=== PATIENT | female | born 1945 | race Caucasian/White ===

== ENCOUNTER 2024-01-23 17:37 | Inpatient (IN) | payer MEDICARE ==
[~2024-01-23] VITALS: Ht 162.6 cm; Wt 43.3 kg
[~2024-01-23 17:37] MED LIST: ALBU90AE INH; CEFD300C3 PO; FLUT1DIS4 INH; LOSA1TAB41 PO; METO-395 PO; PRED10TA23 PO
[2024-01-23 18:02] LABS: BASOPHILS # (AUTO) 0.1 X10'3 (0-0.2); BASOPHILS % (AUTO) 0.4 % (0-1); EOSINOPHILS # (AUTO) 0.1 X10'3 (0-0.9); EOSINOPHILS % (AUTO) 0.4 % (0-6); HEMATOCRIT 45.4 % (35.0-45.0); HEMOGLOBIN 14.8 g/dl (12.0-16.0); LYMPHOCYTES # (AUTO) 1.1 X10'3 (1.1-4.8); LYMPHOCYTES % (AUTO) 6.6 % (21-51); MEAN CORPUSCULAR HEMOGLOBIN 31.2 PG (27.0-31.0); MEAN CORPUSCULAR HGB CONC 32.6 g/dL (33.0-36.5); MEAN CORPUSCULAR VOLUME 95.7 FL (78-98); MEAN PLATELET VOLUME 8.6 FL (7.4-10.4); MONOCYTES # (AUTO) 1.8 X10'3 (0-0.9); MONOCYTES % (AUTO) 11.3 % (2-12); NEUTROPHILS % (AUTO) 81.3 % (42-75); PLATELET COUNT 288 X10'3 (140-440); RED BLOOD COUNT 4.74 X10'6 (4.20-5.60); RED CELL DISTRIBUTION WIDTH 14.5 % (11.5-14.5)
[2024-01-23 18:26] LABS: ALBUMIN 2.7 G/DL (3.4-5.0); ANION GAP 5 (8-16); BLOOD UREA NITROGEN 43 MG/DL (7-18); CHLORIDE 101 MMOL/L (99-107); CREATININE 1.05 MG/DL (0.40-0.90); GLUCOSE 117 MG/DL (70-104); SODIUM 141 MMOL/L (135-145); TOTAL CARBON DIOXIDE 34.6 MMOL/L (24-32); eCRCL 32 ML/MIN; eGFR 50 ML/MIN
[2024-01-23 18:28] LABS: POTASSIUM 4.1 MMOL/L (3.5-5.1)
[2024-01-23] MEDS: CefTRIAXone/D5W-Rocephin 1gm 50 ML IV ONE (19:53)
[2024-01-23] MEDS: normal saline 1000ml 1,000 ML IV ONE (19:53)
[2024-01-23] MEDS: methylPREDNISolone sod succ 125mg/2ml vial IV ONE (19:53)
[2024-01-23] MEDS ORDERED: magnesium sulf-water 4G/100mL 100 ML IV PRN (20:25)
[2024-01-23] MEDS ORDERED: magnesium Cl slow-release 64mg tablet PO PRN (20:25)
[2024-01-23] MEDS ORDERED: morphine 2 MG/ML inj. syringe IV PRN (20:25)
[2024-01-23] MEDS ORDERED: normal saline 1000ml 1,000 ML IV SCH (20:25)
[2024-01-23] MEDS ORDERED: ondansetron/PF 4mg/2ml inj IV PRN (20:25)
[2024-01-23] MEDS ORDERED: potassium Cl 40MEQ/1/2NS 520ml 520 ML IV PRN (20:25)
[2024-01-23] MEDS ORDERED: acetaminophen 325mg tablet PO PRN (20:25)
[2024-01-23] MEDS ORDERED: mag hydrox/Alum hydrox/simeth 30ml oral suspension PO PRN (20:25)
[2024-01-23] MEDS ORDERED: HYDROcodone/acetaminophen 5mg/325mg tablet PO PRN (20:25)
[2024-01-23] MEDS ORDERED: potassium Cl 20 mEq SR tablet PO PRN (20:25)
[2024-01-23] MEDS ORDERED: magnesium sulf-water 2g/50mL 50 ML IV PRN (20:25)
[2024-01-23] MEDS ORDERED: CEFD300C17 PO (20:34)
[2024-01-23] MEDS ORDERED: PRED10TA (20:34)
[2024-01-23] MEDS ORDERED: CEPH-585 PO (20:35)
[2024-01-23] MEDS ORDERED: FLUT1BLS10 PO (20:35)
[2024-01-23 20:58] LABS: HEMOGLOBIN A1C 5.7 % (4.5-6.2)
[2024-01-23 21:06] LABS: PRO BRAIN NATRIURETIC PEPTIDE 1611 PG/ML (0-450)
[2024-01-23] MEDS ORDERED: ipratropium/albuterol 3ml nebule NEB PRN (21:25)
[2024-01-23 21:37] LABS: ABG BASE EXCESS 4.3 mmol/L (-2.0-3.0); ABG HCO3 31.2 mmol/L (21.0-28.0); ABG OXYGEN SATURATION 88.4 % (94.0-98.0); ABG PCO2 (T) 54.4 mmHg (32.0-45.0); ABG PH (T) 7.374 (7.350-7.450); ABG PO2 (T) 53.9 mmHg (83.0-108.0); ALLEN'S TEST Modified; FCOHb 0.5 % (0.5-1.5); FHHb 11.5 % (0.0-5.0); FLOW 3 L/min; FMetHb 0.3 % (0.0-1.5); FO2Hb 87.7 % (94.0-98.0); PATIENT TEMPERATURE 36.5; TOTAL HEMOGLOBIN 14.7 G/dl (12.0-16.0)
[2024-01-23] MEDS: furosemide 10 MG/1 ML 10ml inj IV SCH (22:26)
[2024-01-23] MEDS: azithromycin/NS 500mg/250ml 250 ML IV SCH (22:27)
[2024-01-23 23:49] LABS: BILIRUBIN,URINE NEGATIVE (Neg); CLARITY,URINE CLEAR (Clear); COLOR,URINE YELLOW (Yellow); GLUCOSE, URINE NEGATIVE (Neg); KETONES,URINE NEGATIVE (Neg); LEUKOCYTE ESTERASE ,URINE SMALL (Neg); NITRITES, URINE NEGATIVE (Neg); OCCULT BLOOD,URINE SMALL (Neg); PROTEIN,URINE NEGATIVE (Neg); UROBILINOGEN,URINE 0.2 E.U/dL (0.2-1.0)
[2024-01-24] VITALS (10 sets, daily range): BP systolic 114–132; BP diastolic 41–45; PULSE 83–100; RESP 16–26; TEMP 97.8–98.9; O2SAT 85–92
[2024-01-24 00:14] LABS: UA COLLECTION TYPE CLN CATCH MIDSTREAM
[2024-01-24 00:15] LABS: BACTERIA,URINE FEW /HPF (Neg); SQUAMOUS EPITHELIAL CELL,UR FEW /LPF (FEW); TRANSITIONAL EPI CELLS,URINE FEW /HPF
[2024-01-24 00:16] LABS: HYALINE CASTS 0-3 /LPF (NEGATIVE); RBC,URINE 0-2 /HPF (0-2)
[2024-01-24] MEDS: normal saline 1000ml 1,000 ML IV ONE (00:45)
[2024-01-24] MEDS: docusate sod 100mg capsule PO SCH (07:25)
[2024-01-24] MEDS: K and/or MAG REPLACEMENT MC SCH (07:25)
[2024-01-24] MEDS: heparin, porcine 5000 units/ml vial SQ SCH (07:26)
[2024-01-24] MEDS: HYDROchlorothiazide 12.5mg capsule PO SCH (07:38)
[2024-01-24] MEDS: losartan 50mg tablet PO SCH (07:38)
[2024-01-24] MEDS: metoprolol succinate 25mg (24-HOUR) SR. Tablet PO SCH (07:38)
[2024-01-24] MEDS: methylPREDNISolone sod succ/PF 40mg inj. IV SCH (07:39)
[2024-01-24] MEDS: CefTRIAXone 2gm/D5W 50ml BAG 50 ML IV SCH (07:39)
[2024-01-24] MEDS ORDERED: methylPREDNISolone sod succ 125mg/2ml vial IV SCH (08:00)
[2024-01-24 09:08] LABS: BASOPHILS % (AUTO) 0.1 % (0-1); EOSINOPHILS % (AUTO) 0 % (0-6); HEMATOCRIT 41.3 % (35.0-45.0); HEMOGLOBIN 13.4 g/dl (12.0-16.0); LYMPHOCYTES # (AUTO) 0.3 X10'3 (1.1-4.8); LYMPHOCYTES % (AUTO) 4.1 % (21-51); MEAN CORPUSCULAR HEMOGLOBIN 31.1 PG (27.0-31.0); MEAN CORPUSCULAR HGB CONC 32.4 g/dL (33.0-36.5); MEAN CORPUSCULAR VOLUME 95.9 FL (78-98); MEAN PLATELET VOLUME 8.8 FL (7.4-10.4); MONOCYTES # (AUTO) 0.2 X10'3 (0-0.9); NEUTROPHILS # (AUTO) 7.1 X10'3 (1.8-7.7); NEUTROPHILS % (AUTO) 93.8 % (42-75); PLATELET COUNT 279 X10'3 (140-440); RED CELL DISTRIBUTION WIDTH 14.9 % (11.5-14.5); WHITE BLOOD COUNT 7.5 X10'3 (4.5-11.0)
[2024-01-24 09:37] LABS: ALBUMIN 2.3 G/DL (3.4-5.0); ANION GAP 5 (8-16); BLOOD UREA NITROGEN 41 MG/DL (7-18); BUN/CREATININE RATIO 38.7 (10.0-20.0); CALCIUM 8.3 MG/DL (8.5-10.1); CHLORIDE 105 MMOL/L (99-107); CHOL/HDL RATIO 2.4 (0.00-4.99); CHOLESTEROL 136 MG/DL (0-200); CREATININE 1.06 MG/DL (0.40-0.90); GLUCOSE 212 MG/DL (70-104); HDL CHOLESTEROL 57 MG/DL (35-60); LDL CHOLESTEROL 60 MG/DL (50-100); MAGNESIUM 1.8 MG/DL (1.5-2.4); POTASSIUM 3.1 MMOL/L (3.5-5.1); SODIUM 144 MMOL/L (135-145); TOTAL CARBON DIOXIDE 33.9 MMOL/L (24-32); TRIGLYCERIDES 70 MG/DL (20-135); eCRCL 31 ML/MIN; eGFR 50 ML/MIN
[2024-01-24] MEDS ORDERED: furosemide 20 MG/2 ML vial IV SCH (09:51)
[2024-01-24] MEDS: potassium Cl 20 mEq SR tablet PO PRN (11:45)
[2024-01-24] MEDS: ipratropium/albuterol 3ml nebule NEB SCH (11:55)
[2024-01-24] MEDS: methylPREDNISolone sod succ 125mg/2ml vial IV SCH (14:38)
[2024-01-24] MEDS ORDERED: iohexol 350MG/ML 100ml bottle IV ONE (17:37)
[2024-01-24 23:10] LABS: D-DIMER 2.39 MG/L FEU (0-0.50)
[2024-01-25] VITALS (13 sets, daily range): BP systolic 121–131; BP diastolic 41–50; PULSE 81–107; RESP 16–20; TEMP 97.5–98.1; O2SAT 86–92
[2024-01-25 07:08] LABS: BASOPHILS % (AUTO) 0.1 % (0-1); EOSINOPHILS % (AUTO) 0 % (0-6); HEMATOCRIT 43.2 % (35.0-45.0); HEMOGLOBIN 13.6 g/dl (12.0-16.0); LYMPHOCYTES # (AUTO) 0.5 X10'3 (1.1-4.8); LYMPHOCYTES % (AUTO) 2.2 % (21-51); MEAN CORPUSCULAR HEMOGLOBIN 30.3 PG (27.0-31.0); MEAN CORPUSCULAR HGB CONC 31.5 g/dL (33.0-36.5); MEAN PLATELET VOLUME 9.4 FL (7.4-10.4); MONOCYTES # (AUTO) 0.5 X10'3 (0-0.9); MONOCYTES % (AUTO) 2.2 % (2-12); NEUTROPHILS # (AUTO) 21.7 X10'3 (1.8-7.7); NEUTROPHILS % (AUTO) 95.5 % (42-75); PLATELET COUNT 249 X10'3 (140-440); RED BLOOD COUNT 4.51 X10'6 (4.20-5.60); RED CELL DISTRIBUTION WIDTH 15.1 % (11.5-14.5); WHITE BLOOD COUNT 22.7 X10'3 (4.5-11.0)
[2024-01-25 07:19] LABS: ALANINE AMINOTRANSFERASE 18 U/L (12-78); ALBUMIN 2.6 G/DL (3.4-5.0); ALBUMIN/GLOBULIN RATIO 0.8 (1.1-1.5); ALKALINE PHOSPHATASE 44 IU/L (46-116); ANION GAP 3 (8-16); ASPARTATE AMINO TRANSFERASE 26 U/L (10-37); BILIRUBIN,TOTAL 0.4 MG/DL (0.1-1.0); BLOOD UREA NITROGEN 50 MG/DL (7-18); BUN/CREATININE RATIO 43.9 (10.0-20.0); CALCIUM 8.6 MG/DL (8.5-10.1); CHLORIDE 105 MMOL/L (99-107); CREATININE 1.14 MG/DL (0.40-0.90); GLUCOSE 153 MG/DL (70-104); MAGNESIUM 2.1 MG/DL (1.5-2.4); POTASSIUM 3.7 MMOL/L (3.5-5.1); SODIUM 144 MMOL/L (135-145); TOTAL CARBON DIOXIDE 36.3 MMOL/L (24-32); TOTAL PROTEIN 5.7 G/DL (6.4-8.2); eCRCL 27 ML/MIN; eGFR 46 ML/MIN
[2024-01-25] MEDS: lactose-reduced food (Ensure Enlive) - 237ml bottle PO SCH (17:00)
[2024-01-25] MEDS: magnesium hydroxide 30ml (MOM) UD suspension PO PRN (20:58)
[2024-01-25] MEDS: normal saline 1000ml 1,000 ML IV SCH (21:00)
[2024-01-26] VITALS (15 sets, daily range): BP systolic 129–161; BP diastolic 45–60; PULSE 55–98; RESP 14–20; TEMP 97.5–98.1; O2SAT 85–93
[2024-01-26 07:27] LABS: BASOPHILS % (AUTO) 0 % (0-1); EOSINOPHILS % (AUTO) 0 % (0-6); HEMATOCRIT 42.1 % (35.0-45.0); HEMOGLOBIN 13.6 g/dl (12.0-16.0); LYMPHOCYTES # (AUTO) 0.3 X10'3 (1.1-4.8); LYMPHOCYTES % (AUTO) 1.5 % (21-51); MEAN CORPUSCULAR HEMOGLOBIN 31.3 PG (27.0-31.0); MEAN CORPUSCULAR HGB CONC 32.2 g/dL (33.0-36.5); MEAN CORPUSCULAR VOLUME 96.9 FL (78-98); MEAN PLATELET VOLUME 9.6 FL (7.4-10.4); MONOCYTES # (AUTO) 0.6 X10'3 (0-0.9); MONOCYTES % (AUTO) 2.6 % (2-12); NEUTROPHILS # (AUTO) 20.8 X10'3 (1.8-7.7); NEUTROPHILS % (AUTO) 95.9 % (42-75); PLATELET COUNT 249 X10'3 (140-440); RED BLOOD COUNT 4.34 X10'6 (4.20-5.60); RED CELL DISTRIBUTION WIDTH 14.6 % (11.5-14.5); WHITE BLOOD COUNT 21.7 X10'3 (4.5-11.0)
[2024-01-26 07:55] LABS: ALANINE AMINOTRANSFERASE 24 U/L (12-78); ALBUMIN 2.5 G/DL (3.4-5.0); ALBUMIN/GLOBULIN RATIO 0.7 (1.1-1.5); ALKALINE PHOSPHATASE 44 IU/L (46-116); ANION GAP 1 (8-16); ASPARTATE AMINO TRANSFERASE 29 U/L (10-37); BILIRUBIN,TOTAL 0.2 MG/DL (0.1-1.0); BLOOD UREA NITROGEN 49 MG/DL (7-18); CALCIUM 8.4 MG/DL (8.5-10.1); CHLORIDE 106 MMOL/L (99-107); CREATININE 0.83 MG/DL (0.40-0.90); GLUCOSE 139 MG/DL (70-104); MAGNESIUM 2.9 MG/DL (1.5-2.4); POTASSIUM 3.4 MMOL/L (3.5-5.1); SODIUM 144 MMOL/L (135-145); TOTAL CARBON DIOXIDE 36.7 MMOL/L (24-32); eCRCL 37 ML/MIN; eGFR 66 ML/MIN
[2024-01-26] MEDS ORDERED: ALBU18HF2 INH (15:35)
[2024-01-27] VITALS (16 sets, daily range): BP systolic 120–155; BP diastolic 58–77; PULSE 68–98; RESP 16–21; TEMP 97.5–98; O2SAT 87–94
[2024-01-27 08:19] LABS: ALANINE AMINOTRANSFERASE 25 U/L (12-78); ALBUMIN 2.7 G/DL (3.4-5.0); ALKALINE PHOSPHATASE 47 IU/L (46-116); ANION GAP 2 (8-16); ASPARTATE AMINO TRANSFERASE 28 U/L (10-37); BILIRUBIN,TOTAL 0.3 MG/DL (0.1-1.0); BLOOD UREA NITROGEN 46 MG/DL (7-18); BUN/CREATININE RATIO 61.3 (10.0-20.0); CALCIUM 8.3 MG/DL (8.5-10.1); CHLORIDE 106 MMOL/L (99-107); CREATININE 0.75 MG/DL (0.40-0.90); GLUCOSE 127 MG/DL (70-104); MAGNESIUM 2.6 MG/DL (1.5-2.4); SODIUM 143 MMOL/L (135-145); TOTAL CARBON DIOXIDE 35.3 MMOL/L (24-32); TOTAL PROTEIN 5.4 G/DL (6.4-8.2); eCRCL 41 ML/MIN; eGFR 74 ML/MIN
[2024-01-27 08:20] LABS: POTASSIUM 4.2 MMOL/L (3.5-5.1)
[2024-01-27 08:31] LABS: BASOPHILS % (AUTO) 0.2 % (0-1); EOSINOPHILS % (AUTO) 0 % (0-6); HEMATOCRIT 42.3 % (35.0-45.0); HEMOGLOBIN 13.7 g/dl (12.0-16.0); LYMPHOCYTES # (AUTO) 0.4 X10'3 (1.1-4.8); LYMPHOCYTES % (AUTO) 2.3 % (21-51); MEAN CORPUSCULAR HEMOGLOBIN 31.4 PG (27.0-31.0); MEAN CORPUSCULAR HGB CONC 32.5 g/dL (33.0-36.5); MEAN CORPUSCULAR VOLUME 96.6 FL (78-98); MEAN PLATELET VOLUME 10.5 FL (7.4-10.4); MONOCYTES # (AUTO) 0.7 X10'3 (0-0.9); MONOCYTES % (AUTO) 4.4 % (2-12); NEUTROPHILS # (AUTO) 15.7 X10'3 (1.8-7.7); NEUTROPHILS % (AUTO) 93.1 % (42-75); PLATELET COUNT 233 X10'3 (140-440); RED BLOOD COUNT 4.38 X10'6 (4.20-5.60); RED CELL DISTRIBUTION WIDTH 14.9 % (11.5-14.5); WHITE BLOOD COUNT 16.8 X10'3 (4.5-11.0)
[2024-01-28] VITALS (14 sets, daily range): BP systolic 138–159; BP diastolic 57–61; PULSE 76–99; RESP 15–19; TEMP 97.7–98; O2SAT 87–93
[2024-01-28 06:11] LABS: BASOPHILS % (AUTO) 0.2 % (0-1); EOSINOPHILS % (AUTO) 0 % (0-6); HEMATOCRIT 39.7 % (35.0-45.0); HEMOGLOBIN 12.8 g/dl (12.0-16.0); LYMPHOCYTES # (AUTO) 0.2 X10'3 (1.1-4.8); LYMPHOCYTES % (AUTO) 1.9 % (21-51); MEAN CORPUSCULAR HEMOGLOBIN 30.9 PG (27.0-31.0); MEAN CORPUSCULAR HGB CONC 32.1 g/dL (33.0-36.5); MEAN CORPUSCULAR VOLUME 96.2 FL (78-98); MEAN PLATELET VOLUME 9.7 FL (7.4-10.4); MONOCYTES # (AUTO) 0.3 X10'3 (0-0.9); MONOCYTES % (AUTO) 2.3 % (2-12); NEUTROPHILS % (AUTO) 95.6 % (42-75); PLATELET COUNT 198 X10'3 (140-440); RED BLOOD COUNT 4.13 X10'6 (4.20-5.60); RED CELL DISTRIBUTION WIDTH 14.7 % (11.5-14.5); WHITE BLOOD COUNT 12.6 X10'3 (4.5-11.0)
[2024-01-28 06:34] LABS: ALANINE AMINOTRANSFERASE 28 U/L (12-78); ALBUMIN 2.5 G/DL (3.4-5.0); ALKALINE PHOSPHATASE 45 IU/L (46-116); ANION GAP 1 (8-16); ASPARTATE AMINO TRANSFERASE 27 U/L (10-37); BILIRUBIN,TOTAL 0.3 MG/DL (0.1-1.0); BLOOD UREA NITROGEN 43 MG/DL (7-18); BUN/CREATININE RATIO 63.2 (10.0-20.0); CALCIUM 7.8 MG/DL (8.5-10.1); CHLORIDE 107 MMOL/L (99-107); CREATININE 0.68 MG/DL (0.40-0.90); GLUCOSE 131 MG/DL (70-104); POTASSIUM 4.1 MMOL/L (3.5-5.1); SODIUM 143 MMOL/L (135-145); TOTAL CARBON DIOXIDE 34.7 MMOL/L (24-32); TOTAL PROTEIN 4.9 G/DL (6.4-8.2); eCRCL 45 ML/MIN; eGFR 83 ML/MIN
[2024-01-28] MEDS: azithromycin/NS 500mg/250ml 250 ML IV SCH (16:22)
[2024-01-28] MEDS: methylPREDNISolone sod succ 125mg/2ml vial IV SCH (20:20)
[2024-01-29] VITALS (20 sets, daily range): BP systolic 139–151; BP diastolic 43–63; PULSE 65–99; RESP 13–22; TEMP 96.9–98; O2SAT 82–95
[2024-01-29 06:10] LABS: ALANINE AMINOTRANSFERASE 34 U/L (12-78); ALBUMIN 2.6 G/DL (3.4-5.0); ALKALINE PHOSPHATASE 51 IU/L (46-116); ANION GAP 0 (8-16); ASPARTATE AMINO TRANSFERASE 23 U/L (10-37); BILIRUBIN,TOTAL 0.4 MG/DL (0.1-1.0); BLOOD UREA NITROGEN 38 MG/DL (7-18); BUN/CREATININE RATIO 54.3 (10.0-20.0); CALCIUM 8.1 MG/DL (8.5-10.1); CHLORIDE 107 MMOL/L (99-107); GLUCOSE 133 MG/DL (70-104); POTASSIUM 3.9 MMOL/L (3.5-5.1); SODIUM 143 MMOL/L (135-145); TOTAL CARBON DIOXIDE 35.6 MMOL/L (24-32); TOTAL PROTEIN 5.3 G/DL (6.4-8.2); eCRCL 44 ML/MIN; eGFR 81 ML/MIN
[2024-01-29 14:09] LABS: OSMOLALITY 312 MOSM/K (280-300)
[2024-01-29 14:29] LABS: C-REACTIVE PROTEIN 0.24 MG/DL (0.0-0.5); CREATINE KINASE 49 U/L (26-192); LIPASE 43 U/L (16-77); PHOSPHORUS 2.6 MG/DL (2.3-4.5); PRO BRAIN NATRIURETIC PEPTIDE 2755 PG/ML (0-450)
[2024-01-29] MEDS: furosemide 20 MG/2 ML vial IV SCH (20:30)
[2024-01-29] MEDS: CefTRIAXone 1000mg IM Kit (w/lidocaine diluent) IM ONE (23:54)
[2024-01-30] VITALS (23 sets, daily range): BP systolic 115–142; BP diastolic 40–66; PULSE 72–102; RESP 13–24; TEMP 97.2–98.1; O2SAT 89–97
[2024-01-30] MEDS: aspirin 81mg, enteric-coated 1 TAB TABLET.DR PO SCH (09:00)
[2024-01-30 15:04] LABS: ABG BASE EXCESS 10.4 mmol/L (-2.0-3.0); ABG HCO3 36.8 mmol/L (21.0-28.0); ABG OXYGEN SATURATION 91.8 % (94.0-98.0); ABG PCO2 (T) 55.9 mmHg (32.0-45.0); ABG PH (T) 7.436 (7.350-7.450); ABG PO2 (T) 60.9 mmHg (83.0-108.0); ALLEN'S TEST POSITIVE; FCOHb 0.6 % (0.5-1.5); FHHb 8.1 % (0.0-5.0); FMetHb 0.3 % (0.0-1.5); MODE HIGH FLOW; TOTAL HEMOGLOBIN 14.4 G/dl (12.0-16.0)
[2024-01-30 15:30] LABS: BASOPHILS % (AUTO) 0.2 % (0-1); EOSINOPHILS % (AUTO) 0.1 % (0-6); HEMATOCRIT 43.6 % (35.0-45.0); LYMPHOCYTES # (AUTO) 0.3 X10'3 (1.1-4.8); LYMPHOCYTES % (AUTO) 1.8 % (21-51); MEAN CORPUSCULAR HGB CONC 32.2 g/dL (33.0-36.5); MEAN CORPUSCULAR VOLUME 96.3 FL (78-98); MEAN PLATELET VOLUME 9.6 FL (7.4-10.4); MONOCYTES # (AUTO) 0.6 X10'3 (0-0.9); MONOCYTES % (AUTO) 3.9 % (2-12); NEUTROPHILS # (AUTO) 14.3 X10'3 (1.8-7.7); PLATELET COUNT 223 X10'3 (140-440); RED BLOOD COUNT 4.53 X10'6 (4.20-5.60); RED CELL DISTRIBUTION WIDTH 14.7 % (11.5-14.5); WHITE BLOOD COUNT 15.2 X10'3 (4.5-11.0)
[2024-01-30 15:55] LABS: ALANINE AMINOTRANSFERASE 38 U/L (12-78); ALBUMIN 2.6 G/DL (3.4-5.0); ALKALINE PHOSPHATASE 56 IU/L (46-116); ANION GAP 3 (8-16); ASPARTATE AMINO TRANSFERASE 27 U/L (10-37); BILIRUBIN,TOTAL 0.3 MG/DL (0.1-1.0); BLOOD UREA NITROGEN 38 MG/DL (7-18); BUN/CREATININE RATIO 42.7 (10.0-20.0); CALCIUM 8.1 MG/DL (8.5-10.1); CHLORIDE 101 MMOL/L (99-107); CREATININE 0.89 MG/DL (0.40-0.90); GLUCOSE 223 MG/DL (70-104); POTASSIUM 3.4 MMOL/L (3.5-5.1); PRO BRAIN NATRIURETIC PEPTIDE 2659 PG/ML (0-450); SODIUM 142 MMOL/L (135-145); TOTAL PROTEIN 5.2 G/DL (6.4-8.2); eCRCL 34 ML/MIN; eGFR 61 ML/MIN
[2024-01-30] MEDS ORDERED: potassium Cl 20 mEq SR tablet PO PRN (16:25)
[2024-01-30] MEDS ORDERED: magnesium Cl slow-release 64mg tablet PO PRN (16:25)
[2024-01-30] MEDS: potassium Cl 20 mEq SR tablet PO PRN (21:54)
[2024-01-31] VITALS (16 sets, daily range): BP systolic 104–117; BP diastolic 36–53; PULSE 50–111; RESP 14–20; TEMP 97.4–97.8; O2SAT 85–98
[2024-02-01] VITALS (8 sets, daily range): BP systolic 99–108; BP diastolic 35–48; PULSE 59–103; RESP 16–18; TEMP 97.6–97.8; O2SAT 89–98
[2024-02-01 09:49] LABS: BASOPHILS % (AUTO) 0.1 % (0-1); EOSINOPHILS % (AUTO) 0.3 % (0-6); HEMATOCRIT 43.7 % (35.0-45.0); HEMOGLOBIN 13.9 g/dl (12.0-16.0); LYMPHOCYTES # (AUTO) 0.7 X10'3 (1.1-4.8); LYMPHOCYTES % (AUTO) 4.4 % (21-51); MEAN CORPUSCULAR HEMOGLOBIN 30.5 PG (27.0-31.0); MEAN CORPUSCULAR HGB CONC 31.7 g/dL (33.0-36.5); MEAN PLATELET VOLUME 10.9 FL (7.4-10.4); MONOCYTES # (AUTO) 1.2 X10'3 (0-0.9); MONOCYTES % (AUTO) 8.1 % (2-12); NEUTROPHILS # (AUTO) 12.9 X10'3 (1.8-7.7); NEUTROPHILS % (AUTO) 87.1 % (42-75); PLATELET COUNT 198 X10'3 (140-440); RED BLOOD COUNT 4.56 X10'6 (4.20-5.60); WHITE BLOOD COUNT 14.8 X10'3 (4.5-11.0)
[2024-02-01 10:09] LABS: ALANINE AMINOTRANSFERASE 39 U/L (12-78); ALBUMIN 2.5 G/DL (3.4-5.0); ALKALINE PHOSPHATASE 48 IU/L (46-116); ANION GAP 2 (8-16); ASPARTATE AMINO TRANSFERASE 30 U/L (10-37); BILIRUBIN,TOTAL 0.6 MG/DL (0.1-1.0); BLOOD UREA NITROGEN 40 MG/DL (7-18); BUN/CREATININE RATIO 57.1 (10.0-20.0); CALCIUM 8.5 MG/DL (8.5-10.1); CHLORIDE 104 MMOL/L (99-107); GLUCOSE 111 MG/DL (70-104); SODIUM 146 MMOL/L (135-145); eCRCL 44 ML/MIN; eGFR 81 ML/MIN
[2024-02-01 10:17] LABS: POTASSIUM 4.1 MMOL/L (3.5-5.1)
[2024-02-01 10:26] LABS: TOTAL CARBON DIOXIDE 40.5 MMOL/L (24-32)
== END 2024-02-01 14:45 | DRG 871 ==
LOC: EEVIPCON 17:37 → ER 17:37 → ED HOLD 19:41 → UNDOADMIN 19:41 → ED HOLD 20:31 → ORTHO 4S 01-24 09:40 → PCU 3S 01-29 11:53
PROVIDERS: ADMIT Internal Medicine Pulmonary Disease; ATTEND Nurse Practitioner Family
PROC: B32T1ZZ Computerized Tomography (CT Scan) of Left Pulmonary Artery using Low Osmolar Contrast (ICD-10-PCS; principal; 2024-01-24)
PROC: B32S1ZZ Computerized Tomography (CT Scan) of Right Pulmonary Artery using Low Osmolar Contrast (ICD-10-PCS; 2024-01-24)
PROC: 5A0935A Assistance with Respiratory Ventilation, Less than 24 Consecutive Hours, High Flow/Velocity Cannula (ICD-10-PCS; 2024-01-29)
PROC: 5A0935A Assistance with Respiratory Ventilation, Less than 24 Consecutive Hours, High Flow/Velocity Cannula (ICD-10-PCS; 2024-01-30)
PROC: 5A0935A Assistance with Respiratory Ventilation, Less than 24 Consecutive Hours, High Flow/Velocity Cannula (ICD-10-PCS; 2024-01-31)
PROC: 5A0935A Assistance with Respiratory Ventilation, Less than 24 Consecutive Hours, High Flow/Velocity Cannula (ICD-10-PCS; 2024-02-01)
DX: A41.9 Sepsis, unspecified organism (principal); I21.A1 Myocardial infarction type 2; J96.21 Acute and chronic respiratory failure with hypoxia; J18.9 Pneumonia, unspecified organism; J44.1 Chronic obstructive pulmonary disease with (acute) exacerbation; N17.9 Acute kidney failure, unspecified; E87.29 Other acidosis; J44.0 Chronic obstructive pulmonary disease with (acute) lower respiratory infection; J90 Pleural effusion, not elsewhere classified; Z20.822 Contact with and (suspected) exposure to COVID-19; I10 Essential (primary) hypertension; I27.20 Pulmonary hypertension, unspecified; Z85.820 Personal history of malignant melanoma of skin
CPT/HCPCS: 36415; 36600; 71045; 71250; 71275; 80048; 80053; 80061; 81001; 81003; 82550; 82570; 82803; 83036; 83605; 83690; 83735; 83880; 83930; 83935; 84100; 84145; 84300; 84484; 85018; 85025; 85379; 85651; 86140; 87040; 87081; 87088; 87502; 87503; 87811; 93005; 94640; 94664; 94668; 94760; 96365; 96375; 97110; 97116; 97162; 97530; 99285; A4615; A6213; A6258; A6449; G0378; J0456; J0696; J1644; J1940; J2919; J7030; J7040; Q9967

== ENCOUNTER 2024-02-09 08:38 | Emergency (ER) | payer MEDICARE ==
[~2024-02-09] VITALS: Ht 162.6 cm; Wt 45.5 kg
[2024-02-09] VITALS (12 sets, daily range): BP systolic 74–100; BP diastolic 22–56; PULSE 111–140; RESP 18–20; TEMP 98; O2SAT 85–96
[~2024-02-09 08:38] MED LIST changes: +ALBU18HF2 INH; -ALBU90AE INH; +FLUT1BLS10 PO; -FLUT1DIS4 INH
[2024-02-09] MEDS: niCARDipine-NS 40mg/200ml IVPB 200 ML IV SCH (08:40)
[2024-02-09] MEDS: midazolam 100mg in NS 100ml 100 ML IV PRN (08:55)
[2024-02-09 09:07] LABS: ABG BASE EXCESS 0.5 mmol/L (-2.0-3.0); ABG HCO3 27.9 mmol/L (21.0-28.0); ABG OXYGEN SATURATION 89.5 % (94.0-98.0); ABG PCO2 (T) 54.5 mmHg (32.0-45.0); ABG PH (T) 7.323 (7.350-7.450); ABG PO2 (T) 60.7 mmHg (83.0-108.0); ALLEN'S TEST POSITIVE; FCOHb 0.3 % (0.5-1.5); FHHb 10.5 % (0.0-5.0); FMetHb 0.1 % (0.0-1.5); FO2Hb 89.1 % (94.0-98.0); MODE VENT - PRVC; PATIENT TEMPERATURE 36.1; PEEP 5 cm H2O; RESPIRATORY RATE 18 b/min; TIDAL VOLUME 375 mL; TOTAL HEMOGLOBIN 13.6 G/dl (12.0-16.0)
[2024-02-09] MEDS ORDERED: ondansetron/PF 4mg/2ml inj IV PRN (09:25)
[2024-02-09] MEDS ORDERED: morphine 4 MG/ML inj SYRINge IV PRN (09:25)
[2024-02-09] MEDS ORDERED: morphine 2 MG/ML inj. syringe IV PRN (09:25)
[2024-02-09] MEDS ORDERED: magnesium hydroxide 30ml (MOM) UD suspension PO PRN (09:25)
[2024-02-09] MEDS ORDERED: acetaminophen 325mg tablet PO PRN ×2 (09:25)
[2024-02-09] MEDS ORDERED: normal saline 1000ml 1,000 ML IV SCH (09:25)
[2024-02-09 09:54] LABS: BILIRUBIN,URINE NEGATIVE (Neg); CLARITY,URINE CLEAR (Clear); COLOR,URINE YELLOW (Yellow); GLUCOSE, URINE NEGATIVE (Neg); KETONES,URINE TRACE mg/dl (Neg); LEUKOCYTE ESTERASE ,URINE NEGATIVE (Neg); NITRITES, URINE NEGATIVE (Neg); OCCULT BLOOD,URINE NEGATIVE (Neg); PROTEIN,URINE 30 mg/dl (Neg); UROBILINOGEN,URINE 0.2 E.U/dL (0.2-1.0)
[2024-02-09 09:58] LABS: BASOPHILS % (AUTO) 0.2 % (0-1); EOSINOPHILS % (AUTO) 0 % (0-6); LYMPHOCYTES # (AUTO) 0.3 X10'3 (1.1-4.8)
[2024-02-09 09:59] LABS: BASOPHILS # (AUTO) 0.1 X10'3 (0-0.2); HEMATOCRIT 37.8 % (35.0-45.0); HEMOGLOBIN 11.9 g/dl (12.0-16.0); LYMPHOCYTES % (AUTO) 1.1 % (21-51); MEAN CORPUSCULAR HEMOGLOBIN 30.6 PG (27.0-31.0); MEAN CORPUSCULAR HGB CONC 31.4 g/dL (33.0-36.5); MEAN CORPUSCULAR VOLUME 97.3 FL (78-98); MEAN PLATELET VOLUME 9.6 FL (7.4-10.4); MONOCYTES # (AUTO) 0.7 X10'3 (0-0.9); MONOCYTES % (AUTO) 2.6 % (2-12); NEUTROPHILS # (AUTO) 26.9 X10'3 (1.8-7.7); NEUTROPHILS % (AUTO) 96.1 % (42-75); RED BLOOD COUNT 3.89 X10'6 (4.20-5.60); RED CELL DISTRIBUTION WIDTH 15.3 % (11.5-14.5)
[2024-02-09] MEDS: NORepinephrine 8mg/ 250ml NS 250 ML IV SCH (10:00)
[2024-02-09 10:01] LABS: UA COLLECTION TYPE OTHER
[2024-02-09 10:02] LABS: BACTERIA,URINE NONE SEEN /HPF (Neg); MUCUS STRANDS NONE SEEN /LPF (Neg); RBC,URINE 0-2 /HPF (0-2); SQUAMOUS EPITHELIAL CELL,UR NONE SEEN /LPF (FEW); WBC,URINE 0-4 /HPF (0-4)
[2024-02-09 10:06] LABS: PLATELET COUNT 39 X10'3 (140-440)
[2024-02-09 10:07] LABS: ALANINE AMINOTRANSFERASE 28 U/L (12-78); ALBUMIN 1.6 G/DL (3.4-5.0); ALBUMIN/GLOBULIN RATIO 0.5 (1.1-1.5); ALKALINE PHOSPHATASE 84 IU/L (46-116); ANION GAP 6 (8-16); ASPARTATE AMINO TRANSFERASE 20 U/L (10-37); BILIRUBIN,TOTAL 0.8 MG/DL (0.1-1.0); BLOOD UREA NITROGEN 78 MG/DL (7-18); BUN/CREATININE RATIO 91.8 (10.0-20.0); CALCIUM 8.4 MG/DL (8.5-10.1); CHLORIDE 115 MMOL/L (99-107); CREATININE 0.85 MG/DL (0.40-0.90); GLUCOSE 171 MG/DL (70-104); POTASSIUM 4.3 MMOL/L (3.5-5.1); SODIUM 151 MMOL/L (135-145); TOTAL CARBON DIOXIDE 30.2 MMOL/L (24-32); TOTAL PROTEIN 4.8 G/DL (6.4-8.2); eCRCL 38 ML/MIN; eGFR 64 ML/MIN
[2024-02-09 10:15] LABS: PRO BRAIN NATRIURETIC PEPTIDE 3279 PG/ML (0-450)
[2024-02-09] MEDS: FENTANYL-0.9 % NACL/PF 100 ML IV SCH (10:15)
[2024-02-09] MEDS: CefTRIAXone/D5W-Rocephin 1gm 50 ML IV ONE (10:16)
[2024-02-09] MEDS: NORepinephrine 8mg/ 250ml NS 250 ML IV ONE (10:17)
[2024-02-09] MEDS: normal saline 1000ml 1,000 ML IV ONE ×2 (10:24→10:25)
[2024-02-09 10:32] LABS: ANISOCYTOSIS 1+; PLATELET ESTIMATE DECREASED; TOTAL CELLS COUNTED 100
[2024-02-09] MEDS: ipratropium/albuterol 3ml nebule NEB SCH (11:28)
[2024-02-09] MEDS ORDERED: ipratropium/albuterol 3ml nebule NEB SCH (12:00)
[2024-02-09] MEDS ORDERED: ipratropium 0.5 MG/2.5ML nebule IH SCH (14:00)
[2024-02-09] MEDS ORDERED: albuterol 2.5 MG/3 ML nebule NEB SCH (14:00)
[2024-02-09] MEDS ORDERED: famotidine/PF 10 mg/ml inj IV SCH (20:00)
[2024-02-09] MEDS ORDERED: enoxaparin 40mg/0.4ml syringe SQ SCH (20:00)
== END 2024-02-09 13:45 ==
LOC: ER 08:39 → ED HOLD 09:29 → UNDOADMIN 09:29 → ED HOLD 11:38 → CICU 2S 11:38 → ER 13:45 → UNDODISIN 17:45
DX: J96.00 Acute respiratory failure, unspecified whether with hypoxia or hypercapnia (principal); Z79.52 Long term (current) use of systemic steroids; Z79.899 Other long term (current) drug therapy
CPT/HCPCS: 31500; 36415; 36556; 36600; 71045; 80053; 81001; 82803; 83605; 83880; 84484; 85007; 85018; 85025; 87070; 93005; 94640; 94799; 96365; 99291; A6213; A7015; C1758; J0696; J3010; J3490; J7030; Z7610; 94002; 94760; 96374; G0378